=== PATIENT | female | born 1965 | race Two or more races ===

== ENCOUNTER 2019-11-07 13:15 | Emergency (ER) | payer OTHER ==
--- NOTE | 2019-11-07 14:18 | ER Document Report ---
ED Medical Screen (RME) - General Chief Complaint: Leg Pain Stated Complaint: RIGHT LEG PAIN Time Seen by Provider: 11/07/19 14:09 Mode of Arrival: Wheelchair Information source: Patient, Relative Notes: HPI; 54-year-old female presents to the emergency room complaining of worsening right leg pain. Patient states she slipped and fell at work 10 days ago landing on her right leg and right buttock area. States she has been followed by [employer]. initial x-rays were negative. Had follow-up today was still having pain and bruising was referred to the emergency room for a Doppler to ru le out DVT. Patient has no history of previous DVTs or PEs. She denies any recent travel. However she does state she is standing on her feet for long periods of time at work. PE: Alert and oriented x3. Mild weakness noted. Lungs: Clear to auscultation without rales, rhonchi, wheezes. Heart: Regular rate rhythm without murmurs, rubs, gallops. Abdomen: Right. Right positive pedal pulse. Ecchymosis noted to the distal posterior right upper leg. It is tender to palpation. I have greeted and performed a rapid initial assessment of this patient. A comprehensive ED assessment and evaluation of the patient, analysis of test results and completion of the medical decision making process will be conducted by additional ED providers. I have specifically instructed the patient or family members with the patient to immediately return to any nursing staff should anything change in the patient's condition or with their chief complaint. TRAVEL OUTSIDE OF THE [place] IN LAST 30 DAYS: No Physical Exam - Vital signs Vitals: Temp Pulse Resp BP Pulse Ox 98.7 F 84 20 164/102 H 96 11/07/19 13:54 11/07/19 13:54 11/07/19 13:54 11/07/19 13:54 11/07/19 13:54 Course - Vital Signs Vital signs: Temp Pulse Resp BP Pulse Ox 98.7 F 84 20 164/102 H 96 11/07/19 13:54 11/07/19 13:54 11/07/19 13:54 11/07/19 13:54 11/07/19 13:54
--- NOTE | 2019-11-07 14:48 | ER Document Report ---
ED Extremity Problem, Lower - General Chief Complaint: Leg Pain Stated Complaint: RIGHT LEG PAIN Time Seen by Provider: 11/07/19 14:09 Mode of Arrival: Wheelchair Notes: CHIEF COMPLAINT: Evaluation of leg pain HPI: 54-year-old female presenting to the emergency department for evaluation of right leg pain on the posterior aspect. Had a fall at work over a week ago landing on the right gluteal region. Patient still with pain to that region but states she went to the urgent care and had x-rays done that were negative. Patient developed bruising and swelling to the hamstring region and was sent into the emergency department today by the [employer] people at the urgent care for an ultrasound to evaluate for possible DVT. She reports some numbness and tingling in the left hip and leg at times but denies any central back pain. No incontinence of urine or bowel. ROS: See HPI - all other systems were reviewed and are otherwise negative Constitutional: no fever Eyes: no drainage, no blurred vision ENT: no runny nose, no sore throat Cardiovascular: no chest pain Resp: no SOB, no cough GI: no vomiting, no diarrhea, no abdominal pain : no dysuria Integumentary: no rash Allergy: no hives Musculoskeletal: + extremity pain or swelling Neurological: no numbness/tingling, no weakness MEDICATIONS: I agree with the patient medications as charted by the RN. ALLERGIES: I agree with the allergies as charted by the RN. PAST MEDICAL HISTORY/PAST SURGICAL HISTORY: Reviewed and agree as charted by RN. SOCIAL HISTORY: Reviewed and agree as charted by RN. FAMILY HISTORY: No significant familial comorbid conditions directly related to patient complaint EXAM: Reviewed vital signs as charted by RN. CONSTITUTIONAL: Alert and oriented and responds appropriately to questions. Well-appearing; well-nourished HEAD: Normocephalic; atraumatic EYES: PERRL; Conjunctivae clear, sclerae non-icteric ENT: normal nose; no rhinorrhea; moist mucous membranes; pharynx without lesions noted, no uvula edema or deviation, no tonsillar hypertrophy, phonation normal NECK: Supple without meningismus; non-tender; no cervical lymphadenopathy, no masses CARD: RRR; no murmurs, no clicks, no rubs, no gallops; symmetric distal pulses RESP: Normal chest excursion without splinting or tachypnea; breath sounds clear and equal bilaterally; no wheezes, no rhonchi, no rales, pulse oximetry 98% on room air not hypoxic ABD/GI: Normal bowel sounds; non-distended; soft, non-tender, no rebound, no guarding; no palpable organomegaly or masses. BACK: The back appears normal and is non-tender to palpation directly over the lumbar spine, there is no CVA tenderness EXT: Normal ROM in all joints; no visible bruising to the right hip or gluteal region mild tenderness on palpation of this region and into the hamstring region where there is some bruising just proximal to the knee; no cyanosis, no effusions, no edema SKIN: Normal color for age and race; warm; dry; good turgor NEURO: Moves all extremities equally; Motor and sensory function intact PSYCH: The patient's mood and manner are appropriate. Grooming and personal hygiene are appropriate. MDM: TRAVEL OUTSIDE OF THE [place] IN LAST 30 DAYS: No - Related Data Allergies/Adverse Reactions: No Known Allergies Allergy (Unverified 11/07/19 14:19) Past Medical History - General Information source: Patient, Relative - Social History Smoking Status: Never Smoker Chew tobacco use (# tins/day): No Frequency of alcohol use: None Drug Abuse: None Family History: Reviewed & Not Pertinent Physical Exam - Vital signs Vitals: Temp Pulse Resp BP Pulse Ox 98.7 F 84 20 164/102 H 96 11/07/19 13:54 11/07/19 13:54 11/07/19 13:54 11/07/19 13:54 11/07/19 13:54 Course - Re-evaluation Re-evalutation: 11/07/19 17:51 Doppler study is negative for DVT. X-ray imaging negative for fracture of the lumbar spine or hip. Lab work negative for acute findings. Will discharge home to follow back up with [employer] will also refer to orthopedics - Vital Signs Vital signs: Temp Pulse Resp BP Pulse Ox 98.7 F 84 20 164/102 H 96 11/07/19 14:10 11/07/19 13:54 11/07/19 13:54 11/07/19 13:54 11/07/19 13:54 - Laboratory Result Diagrams: 11/07/19 14:30 11/07/19 14:30 Laboratory results interpreted by me: 11/07/19 14:30 Sodium 134.1 L Creatinine 0.51 L Glucose 362 H Discharge - Discharge Clinical Impression: Hematoma of leg Qualifiers: Encounter type: initial encounter Laterality: right Qualified Code(s): S80.11XA - Contusion of right lower leg, initial encounter Fall Qualifiers: Encounter type: initial encounter Qualified Code(s): W19.XXXA - Unspecified fall, initial encounter Contusion of hip, right Qualifiers: Encounter type: initial encounter Qualified Code(s): S70.01XA - Contusion of right hip, initial encounter Condition: Stable Disposition: HOME, SELF-CARE Instructions: Hematoma ([facility]) Additional Instructions: Continue ice to ice the right hip and thigh region. Tylenol or Motrin for pain. Follow back up through your [employer] providers at the urgent care for further evaluation and management. Your x-rays and imaging studies today did not show evidence of a fracture or a blood clot
[2019-11-07 15:06] LABS: ABSOLUTE BASOPHILS # (AUTO) 0.1 10^3/uL (0.0-0.2); ABSOLUTE EOSINOPHILS # (AUTO) 0.4 10^3/uL (0.0-0.6); ABSOLUTE MONOCYTES (AUTO) 0.6 10^3/uL (0.1-1.4); ABSOLUTE NEUT (AUTO) 3.5 10^3/uL (1.7-8.2); BASOPHILS % (AUTO) 0.9 % (0-2); EOSINOPHILS % (AUTO) 4.7 % (0-6); HEMOGLOBIN 14.5 g/dL (12.0-15.5); LYMPHOCYTES % (AUTO) 39.9 % (13-45); MEAN CORPUSCULAR HEMOGLOBIN 29.7 pg (27.0-33.4); MEAN CORPUSCULAR HGB CONC 33.8 g/dL (32.0-36.0); MEAN CORPUSCULAR VOLUME 88 fl (80-97); MONOCYTES % (AUTO) 8.2 % (3-13); PLATELET COUNT 261 10^3/uL (150-450); RED BLOOD COUNT 4.89 10^6/uL (3.72-5.28); RED CELL DISTRIBUTION WIDTH 13.2 % (11.5-14.0); SEGMENTED NEUTROPHILS % (AUTO) 46.3 % (42-78); TOTAL CELLS COUNTED % (AUTO) 100 %; WHITE BLOOD COUNT 7.6 10^3/uL (4.0-10.5)
[2019-11-07 15:07] LABS: INTERNATIONAL RATION (INR) 0.96; PROTHROMBIN TIME 12.8 SEC (11.4-15.4)
--- NOTE | 2019-11-07 15:24 | RADIOLOGY REPORT (SQ) ---
EXAM DESCRIPTION: HIP RIGHT AP/LATERAL IMAGES COMPLETED DATE/TIME: 11/07/2019 3:06 pm REASON FOR STUDY: fall COMPARISON: None. NUMBER OF VIEWS: Two views. TECHNIQUE: AP pelvis and additional frog-leg view of the right hip. LIMITATIONS: None. FINDINGS: MINERALIZATION: Normal. RIGHT HIP: No fracture or dislocation. No worrisome bone lesions. LEFT HIP: No fracture or dislocation. No worrisome bone lesions. PUBIS AND ISCHIUM: No fracture. PELVIS: No fracture. SACRUM: No fracture or dislocation. No worrisome bone lesions. LOWER LUMBAR SPINE: No fracture or dislocation. No worrisome bone lesions. No significant disc disea se. SOFT TISSUES: No findings. OTHER: No other significant finding. IMPRESSION: No acute osseous abnormality of the right hip. TECHNICAL DOCUMENTATION: JOB ID: [id number] 2010 [employer]- All Rights Reserved Reading location - IP/workstation name: [email or web address]
--- NOTE | 2019-11-07 15:26 | RADIOLOGY REPORT (SQ) ---
EXAM DESCRIPTION: L SPINE WHOLE IMAGES COMPLETED DATE/TIME: 11/07/2019 3:06 pm REASON FOR STUDY: fall COMPARISON: None. NUMBER OF VIEWS: Five views including obliques. TECHNIQUE: AP, lateral, oblique, and sacral radiographic images acquired of the lumbar spine. LIMITATIONS: None. FINDINGS: MINERALIZATION: Normal. SEGMENTATION: Normal. No transitional anatomy assuming hypoplastic ribs at T12. ALIGNMENT: Normal. VERTEBRAE: Maintained height. No fracture or worrisome bone lesion. DISCS: Preserved height. Multilevel thoracolumbar marginal osteophyte formation, greatest at the low er thoracic spine. . POSTERIOR ELEMENTS: Pedicles and facets are intact. Multilevel facet arthropathy. No pars defect or posterior arch defects. HARDWARE: None in the spine. PARASPINAL SOFT TISSUES: Normal. PELVIS: Intact as visualized. No fractures or worrisome bone lesions. SI joints intact. OTHER: No other significant finding. IMPRESSION: No acute osseous abnormality of the lumbar spine. TECHNICAL DOCUMENTATION: JOB ID: [id number] 2010 [employer]- All Rights Reserved Reading location - IP/workstation name: [email or web address]
[2019-11-07 15:29] LABS: ALBUMIN 3.9 g/dL (3.5-5.0); ALKALINE PHOSPHATASE 74 U/L (38-126); ANION GAP 8 (5-19); ASPARTATE AMINO TRANSFERASE 26 U/L (14-36); BILIRUBIN,TOTAL 0.3 mg/dL (0.2-1.3); BLOOD UREA NITROGEN 14 mg/dL (7-20); CALCIUM 9.2 mg/dL (8.4-10.2); CARBON DIOXIDE 27 mmol/L (22-30); CHLORIDE 99 mmol/L (98-107); GLUCOSE 362 mg/dL (75-110); POTASSIUM 3.7 mmol/L (3.6-5.0)
[2019-11-07 18:00] VITALS: BP 176/101
--- NOTE | 2019-11-07 20:11 | RADIOLOGY REPORT (SQ) ---
EXAM DESCRIPTION: US EXTREMITY VEINS UNILATERAL COMPLETED DATE/TME: 11/07/2019 14:14 CLINICAL HISTORY: 54 years, Female, right leg pain/swelling/bruising EXAM DESCRIPTION: CLINICAL HISTORY: 54 years Female right leg pain/swelling/bruising COMPARISON: None. TECHNIQUE: Duplex and color Doppler imaging performed to evaluate the extremity deep venous structures. Compression imaging and augmentation imaging performed. FINDINGS: No thrombus is identified in the right lower extremity deep venous structures imaged. There is normal flow, compressibility, and augmentation throughout. IMPRESSION: No DVT is identified.
== END 2019-11-07 18:01 | disposition home or self-care (01) ==
LOC: ER 13:15
DX: S70.01XA Contusion of right hip, initial encounter (principal); S80.11XA Contusion of right lower leg, initial encounter; W01.0XXA Fall on same level from slipping, tripping and stumbling without subsequent striking against object, initial encounter; Y99.0 Civilian activity done for income or pay
CPT/HCPCS: 36415; 72110; 80053; 85025; 85610; 93971; 99284